=== PATIENT | female | born 1950 | race Caucasian/White ===

== ENCOUNTER → 2021-04-30 11:12 | Outpatient (CLI) | payer MEDICARE, OTHER, SELFPAY ==
[2021-04-30 12:36] LABS: COVID19 -Nasal RAPID Negative (Negative)
== END ==
PROVIDERS: PCP Internal Medicine; Visit Provider Family Medicine Sleep Medicine
DX: Z20.822 Contact with and (suspected) exposure to COVID-19 (principal)
CPT/HCPCS: 87635; C9803

== ENCOUNTER 2021-05-03 10:48 | Day surgery (SDC) | payer MEDICARE, OTHER, SELFPAY ==
--- NOTE | 2021-04-30 15:48 | SUR.PREOP ---
Addendum entered by Christianne Garcia R.N. 04/30/21 16:16: [employer], Ascencion Mcdonald Rn, okayed bus departure post procedure, only if has a friend to go with her. Original Note: 04/30/21-2876- patient contacted for Pending procedure/Endo / on monday. patient states concern over her only friend in area doesnt drive. Desires to take bus in/home. Discussed policy due to sedation and can go home with friend by taxi, but not by bus. Patient states person from [facility] okayed her to the bus was acceptable as for if she had friend with her. message left for dept. maintenance and engineering manager and discussed with patient , that we will call her back with further information.
--- NOTE | 2021-05-03 | PATH_ITS ---
[facility] Accession Number: [id number] . 01 Material submitted: . stomach - ANTRUM . 02 Diagnosis: Antrum, Biopsy: Portions of gastric antral mucosa with mild chronic inflammation. Negative for Helicobacter organisms by immunohistochemistry. Negative for intestinal metaplasia. Negative for dysplasia or malignancy. MRV 05/06/2021 1324 Local . 02 Electronically signed: . Meghana Foster MD, Pathologist NPI- [id number] . 01 Gross description: . ANTRUM: Received in formalin are 2 fragment(s) of ho, soft tissue measuring 0.1 x 0.1 x 0.1 cm in aggregate submitted entirely in 1 cassette(s) /POLY 05/04/2021 2240 Local . 02 Microscopic: . An immunohistochemical stain is performed to evaluate for Helicobacter organisms and is negative. The control stain showed appropriate reactivity. . * This test was developed and its performance characteristics determined by [facility]. It has not been cleared or approved by the U.S. Food and Drug Administration. The FDA has determined that such clearance or approval is not necessary. This test is used for clinical purposes. It should not be regarded as investigational or for research. . 02 Pathologist provided ICD-10: K21.9 . 02 CPT . 209703, E38182 Specimen Comment: A courtesy copy of this report has been sent to [phone], [phone] Specimen Comment: [id number] Performed at: 01 [facility] [address] [address], [place], [place] [id number] MD Stanley Stack MD Phone: [phone] Performed at: 02 [facility] [place] [address] [address] [place], [place] [id number] MD Amna Mckoy MD Phone: [phone]
[2021-05-03] MEDS: SODIUM CHLORIDE 0.9% 1,000 ML 100 ML IV (12:08)
[2021-05-03 12:09] VITALS: BP 145/81; PULSE 102; RESP 18; TEMP 36.4; BMI 28.1
--- NOTE | 2021-05-03 13:08 | PM.HP.1 ---
History of Present Illness History of Present Illness Date Patient Seen: 05/03/21 Time Patient Seen: 13:08 Chief complaint: EGD W/POSS BX Narrative: 71-year-old female who reports symptoms of reflux over the last 2-3 years that are new for her. She has gained quite a bit of weight secondary to mood induced eating over the years. Historically she was using more and more Tums to gain control over her symptoms. For the last couple of months she has had a fairly decent response to [id number] omeprazole. Patient denies any prior upper endoscopy. She believes she had a laryngoscopy some 10 years ago. Patient History Surgical History Status post eye surgery (11/16/15) Status post tubal ligation Family & Social History Social History: household members none Tobacco & Substance use: Smoking Status Never smoker alcohol intake current alcohol intake frequency holiday/special occasion Substance Use Type does not use Meds Home Medications and Allergies Home Medications Medication Instructions Recorded Confirmed Type fluticasone propionate 44 10.6 inh INHALATION DAILY #0 07/20/16 05/03/21 History mcg/actuation HFA aerosol inhaler (Flovent HFA) levothyroxine 88 mcg tablet 88 mcg PO QDAY #0 07/20/16 05/03/21 History nortriptyline 50 mg capsule 50 mg PO HS #0 07/20/16 05/03/21 History Allergies Allergy/AdvReac Type Severity Reaction Status Date / Time erythromycin base Allergy Unknown Verified 05/03/21 11:56 [From ERYTHROCIN] Review of Systems Review of Systems ROS: Yes All systems reviewed with the patient and are negative except as otherwise documented Exam Vital Signs (past 8 hours): - 05/03/21 12:09 Temperature 97.6 F Pulse Rate 102 H Respiratory Rate 18 Blood Pressure 145/81 H Oxygen Delivery Method Room Air Const General: cooperative and comfortable Orientation: alert HENTX Head: normocephalic Ears: external ears normal Nose: external nose normal Face and sinus: normal facial exam Mouth: oral mucosae normal Eyes General: appearance normal, both eyes and all related structures Neck Neck: normal visual inspection Chest Chest: normal inspection of the chest Resp Effort & Inspection: normal respiratory effort Cardio Rate: regular rate GI Inspection: normal to inspection Skin General: no rashes or lesions noted and No jaundice Neuro General: patient alert and moves all extremities Cognition: normal cognition Speech: speech normal Extrem General: no pedal edema Psych Appearance: grossly normal Assessment & Plan Assessment & Plan narrative: This is a 71-year-old female with new onset reflux starting at around age 68 or 69. Based on age of onset even with a reasonable response thus far to omeprazole diagnostic EGD is indicated and will be pursued today. Time Spent With Patient Critical Care time: I spent a total of [] minutes of critical care time on this patient's care today; this time is exclusive of procedural time.
--- NOTE | 2021-05-03 13:11 | PM.PREOP ---
Pre-operative Note COVID-19 COVID-19 status: Negative Result date/Date tested (Pos, Neg/Pending): 04/30/21 Criteria for continued procedure: Possibility delay results in more complex future surgery or treatment Interval Note History & Physical reviewed/Exam performed by Physician: Yes Changes to H&P: Yes ASA Class (for procedural sedation): II
--- NOTE | 2021-05-03 14:38 | PM.OP.EGD ---
Operative Date/Time/Diagnoses Date of procedure: 05/03/21 Time of procedure: 14:38 Pre-op diagnosis: Gastroesophageal reflux Post-op diagnosis: same Procedure & Clinicians Study performed: EGD with biopsies Same procedure as scheduled: Yes Indications: Gastroesophageal reflux Surgeon: Miguel Hidalgo Procedure Notes SCOAP/Timeout: Done Procedure in detail: After the risks and benefits were explained, written and verbal informed consent was obtained. The patient was brought into the procedure room and placed into the left lateral decubitus position. Please see nurse title search manager notes for sedation details. The scope was introduced into the mouth through the bite block and advanced under direct visualization to the 2nd portion of the duodenum. The scope was slowly withdrawn carefully examining the mucosa for any defects or lesions. Retroflexed views were accomplished in the stomach. The stomach was decompressed, the scope was then removed from the patient who tolerated the procedure well. Sedation minutes: 10 Complications: none Impression: 1. Duodenum: This was visually normal from the bulb through the 2nd portion with the exception of a small duodenal diverticulum in D2. 2. Stomach: The patient had a mild gastropathy and biopsies were therefore taken from the antrum for exclusion of Helicobacter or other pathology. No ulcers no lesions no outlet obstruction. Retroflexed views of the LES disclosed a sliding hiatal hernia and subtle faint Ronald's erosions 3. Esophagus: The GE junction was at approximately 35 cm from the incisors. The diaphragmatic pinchcock was at approximately 39 cm from the incisors. The patient had no evidence of any mass lesion or neoplasia in the distal esophagus. There was however evidence of scattered linear erosive changes from GE junction up to 27 cm from the incisors consistent with LA grade B erosive esophagitis. Endoscopic diagnosis 1. LA grade B erosive esophagitis 2. 4 cm hiatal hernia 3. Mild Ronald's erosions 4. Mild gastropathy Post-procedure Plan for aftercare: 1. Await histopathology 2. Consider increasing omeprazole up to twice daily. 3. Lifestyle modifications that will foster weight loss. This often helps reduce the propensity to reflux and mail out a reduced dose of omeprazole moving forward. 4. Follow up in GI clinic in the next 2-3 months. Disposition: PACU
[2021-05-03 14:42] VITALS: BP 138/69; PULSE 90; RESP 13; TEMP 36.8; O2SAT 98
[2021-05-03 14:47] VITALS: BP 134/59; PULSE 97; RESP 13; O2SAT 98
[2021-05-03 14:53] VITALS: BP 142/66; PULSE 94; RESP 17; O2SAT 96
[2021-05-03 15:07] VITALS: BP 141/79; PULSE 89; RESP 15; TEMP 36.7; O2SAT 97
[2021-05-03 15:10] VITALS: BP 133/64; PULSE 96; RESP 16; TEMP 36.8; O2SAT 96
== END 2021-05-03 15:28 | disposition home or self-care (01) ==
PROVIDERS: PCP Internal Medicine; Referring Provider Internal Medicine Gastroenterology; Visit Provider Internal Medicine Gastroenterology
PROC: 0DJ08ZZ Inspection of Upper Intestinal Tract, Via Natural or Artificial Opening Endoscopic (ICD-10-PCS; CPT 43235; principal; 2021-05-03 13:00)
DX: K21.00 Gastro-esophageal reflux disease with esophagitis, without bleeding (principal); K22.10 Ulcer of esophagus without bleeding; K44.9 Diaphragmatic hernia without obstruction or gangrene; K31.9 Disease of stomach and duodenum, unspecified; K29.50 Unspecified chronic gastritis without bleeding
CPT/HCPCS: 43239; J2704